=== PATIENT | female | born 1940 | race Caucasian/White ===

== ENCOUNTER 2019-09-15 14:10 | Outpatient (CLI) | payer MEDICARE, SELFPAY ==
--- NOTE | ~2019-09-15 | CT_ITS ---
EXAMINATION: CT abdomen pelvis wo con EXAM DATE: 09/15/2019 14:35 INDICATION: Right lower quadrant abdominal pain. TECHNIQUE: Spiral CT of the abdomen and pelvis was performed without contrast. Axial, coronal and s agittal images were reviewed. The dose-length product (DLP) for this examination was 1283.71 mGy-cm. The exposure was tailored according to patient size (auto mA exposure control), and iterative recon struction (ASIR) was used as additional dose reduction technique. There is no prior study for compar kassie. FINDINGS: The liver, spleen, adrenal glands and pancreas are unremarkable. Several small peripherall y calcified gallbladder in the dependent aspect of the gallbladder, its neck, with moderately distend ed but otherwise unremarkable gallbladder. Calcification lower pole right kidney suspected most like ly parenchymal, measuring 4 mm in size. There is no hydronephrosis. Multiple sizable left renal cysts distorting left renal contour, individual lesions measuring up to 7 cm. No evidence of wall thickeni ng within any of these on this noncontrast study. The uterus is unremarkable. The bladder is unrem arkable. There is no retroperitoneal or pelvic lymphadenopathy. There is mild scattered arterioscl erotic disease. The appendix is normal. The stomach and small bowel are unremarkable. There is extensive sigmoid col onic diverticulosis. There is no adjacent inflammatory change to suggest diverticulitis. There is c oarse benign-appearing mesenteric calcification without any soft tissue density associated. No free intraperitoneal gas. The heart is normal in size. There are no pericardial or pleural effusions. The lung bases are unremarkable. There are no osteoblastic or osteolytic lesions identified. There is moderate lumbar levoscoliosis. Advanced lumbar spondylosis. IMPRESSION: 1. No acute intra-abdominal findings. Normal appendix. 2. Rather extensive sigmoid diverticulosis. 3. Cholelithiasis. Reviewed, dictated and finalized at location A.
== END 2019-09-15 14:11 | disposition home or self-care (01) ==
LOC: ANHIMG 14:15
PROVIDERS: PCP Family Medicine; Visit Provider Family Medicine
DX: R10.31 Right lower quadrant pain (principal); K80.20 Calculus of gallbladder without cholecystitis without obstruction; K57.30 Diverticulosis of large intestine without perforation or abscess without bleeding
CPT/HCPCS: 74176

== ENCOUNTER 2020-04-19 14:10 | Inpatient (IN) | payer MEDICARE, SELFPAY ==
[2020-04-19] VITALS (7 sets, daily range): BP systolic 102–166; BP diastolic 51–136; PULSE 76–101; RESP 18–22; TEMP 36.3–36.4; O2SAT 85–99; BMI 45.3
--- NOTE | ~2020-04-19 | US_ITS ---
EXAMINATION: US renal BI EXAM DATE: 04/20/2020 10:14 INDICATION: Possible left renal mass noted on CT. TECHNIQUE: Multiple grayscale and Doppler images of the kidneys were obtained (by a technologist who performed the scan) and subsequently reviewed. There is no prior study for comparison. FINDINGS: Right kidney: There is normal contour and echogenicity. It measures 11.6 x 4.6 x 5.8 centimeters. A focal 1 cm hyperechoic region was measured in the lower pole, nonspecific region. There is no hydro nephrosis. Left kidney: There is normal contour and echogenicity. It measures 17.4 x 6.2 x 5.5 centimeters. The re are multiple anechoic regions. One of these may have a thick wall along portions. Largest measures 6 cm. There is no hydronephrosis. Bladder unremarkable. IMPRESSION: Indeterminate bilateral renal lesions; MR abdomen without and with contrast recommended. Reviewed, dictated and finalized at location B. IST FOOD
--- NOTE | ~2020-04-19 | CT_ITS ---
EXAMINATION: CTA chest PE protocol DATE: 04/19/2020 18:01 CAR REFINISHER INDICATION: Positive d-dimer TECHNIQUE: Computed tomographic angiography (CTA) of the chest was performed with 100 mL Omnipaque-35 0 intravenous contrast. The dose-length product was 879.11 mGy-cm. Maximum intensity projection 3D-re constructions of the aorta and other arteries were constructed by the technologist on a separate work station. Automated exposure control and iterative reconstruction technique were employed. COMPARISON: CT dated 11/29/2004. FINDINGS: Study is technically adequate without evidence for pulmonary embolism. Cardiomegaly. No sig nificant pleural or pericardial effusion. There is atherosclerosis of the aorta and coronary arteries without aneurysm or dissection. No gallstones. There is a possible left renal mass. Consider correla tion with ultrasound or CT abdomen with contrast on nonemergent basis. There is dependent atelectasis . No endobronchial lesions. No focal airspace consolidation to suggest pneumonia. No pneumothorax. 2 mm right upper lobe nodule, likely benign. IMPRESSION: 1. No evidence for pulmonary embolism. Left basilar atelectasis. 2: Possible left renal mass partially visualized. Consider correlation with ultrasound or CT abdomen with contrast on a nonemergent basis. Reviewed, dictated and finalized at location A. REFINISHER IMPRESSION: 1. No evidence for pulmonary embolism. Left basilar atelectasis. 2: Possible left renal mass partially visualized. Consider correlation with ul trasound or CT abdomen with contrast on a nonemergent basis.
--- NOTE | ~2020-04-19 | US_ITS ---
EXAMINATION: US venous doppler LE EXAM DATE: 04/19/2020 15:35 INDICATION: Bilateral leg swelling. TECHNIQUE: Multiple grayscale, color flow and Doppler images of the lower extremity deep venous syste ms bilaterally were obtained and reviewed. There is no prior study for comparison. FINDINGS: Right side: The right common femoral, femoral and profunda veins demonstrate normal color flow, respi ratory variation, augmentation and compressibility. Compressibility, color flow confirmed within the right popliteal, posterior tibial, peroneal, and greater saphenous veins. Left side: The left common femoral, femoral and profunda veins demonstrate normal color flow, respira tory variation, augmentation and compressibility. Compressibility, color flow confirmed within the l eft popliteal, posterior tibial, peroneal, and greater saphenous veins. IMPRESSION: 1. No lower extremity deep venous thrombosis bilaterally. Reviewed, dictated and finalized at location B. FEEDER
--- NOTE | ~2020-04-19 | XR_ITS ---
EXAMINATION: XR chest 1V portable INDICATION: Shortness of breath TECHNIQUE: Portable AP chest at 1500 hours COMPARISON: 11/29/2004 FINDINGS: The lungs are free of acute opacities. There is no pleural effusion or pneumothorax. The ca rdiomediastinal silhouette is normal. IMPRESSION: 1. No acute cardiopulmonary abnormality. Reviewed, dictated and finalized at location A. LING MACHINE OPERATOR
--- NOTE | 2020-04-19 14:11 | ECG_ITS ---
Measurements Intervals [place] Rate: 103 P: 63 CO: 155 QRS: -36 QRSD: 106 T: 120 QT: 323 QTc: 425 Interpretive Statements SINUS TACHYCARDIA FREQUENT VENTRICULAR PREMATURE COMPLEXES LEFT AXIS DEVIATION BORDERLINE R WAVE PROGRESSION, ANTERIOR LEADS ST-T WAVE ABNORMALITY IN HIGH LATERAL LEADS- CONSIDER ISCHEMIA BASELINE ARTIFACT- I, II, III, AVR ABNORMAL ECG Electronically Signed On 04-19-2020 14:48:57 FUNNEL SETTER by Geoff Soriano D.O.
--- NOTE | 2020-04-19 14:54 | ED.GENADULT ---
HPI - General Adult General Chief complaint: Shortness of Breath/Dyspnea Stated complaint: SOB-retaining water Time Seen by Provider: 04/19/20 14:26 Source: patient History of Present Illness HPI narrative: Patient is a 79 y/o female complaining of moderate SOB for 2-3 weeks. She states that exertion makes her SOB worse. She states that her BP meds was changed recently. She has some leg swelling. She denies any chest pain or cough. Related Data Allergies Allergy/AdvReac Type Severity Reaction Status Date / Time No Known Drug Allergies Allergy Unknown NONE Verified 11/01/16 10:22 Review of Systems Constitutional: Constitutional: Denies chills, Denies fever(s), Denies headache(s) and Denies weakness Eyes: Eyes: Denies blurry vision ENT: Denies headache(s) and Denies neck pain Cardiovascular: Cardiovascular: Denies chest pain, Reports leg edema and Reports dyspnea Respiratory: Respiratory: Denies cough and Reports dyspnea Gastrointestinal: Gastrointestinal: Denies abdominal pain, Denies diarrhea, Denies nausea and Denies vomiting Genitourinary: Genitourinary: Denies hematuria and Denies dysuria Musculoskeletal: Musculoskeletal: Denies back pain and Denies neck pain Neurologic: Denies headache(s) and Denies weakness Exam Const: General: no acute distress and well developed Orientation/consciousness: oriented to person, oriented to place, oriented to time and patient oriented x3 HENMT: Head: normocephalic Ears: external ears normal General nose exam: Normal external nose present Eyes: General: appearance normal, both eyes and all related structures Conjunctivae: conjunctivae normal Neck: Neck: normal visual inspection and full ROM Chest: Chest palpation & inspection: normal inspection of the chest and no tenderness Resp: Effort & Inspection: normal respiratory effort Auscultation: clear to auscultation bilaterally Cardio: Rate: regular rate Rhythm: regular rhythm GI: GI Palp: No abdominal tenderness and Yes Soft to palpation Skin: General skin exam: normal color and turgor normal Neuro: General: oriented to person, oriented to place, oriented to time and patient oriented x3 Cognition (Neuro): normal cognition Extrem: General: normal to inspection, full ROM and edema bilateral Psych: Appearance: grossly normal Mental Status: mental status grossly normal Affect: normal affect Course Consultations Consultation #1: Discussed with BARBARA Mullins, who agrees to admit. Date: 04/19/20 Time: 19:00 Vital Signs Vital signs: Vital Signs Temperature 36.4 C L 04/19/20 14:17 Pulse Rate 101 H 04/19/20 14:17 Respiratory Rate 18 04/19/20 14:17 Blood Pressure 111/64 04/19/20 14:17 Pulse Oximetry 85 L 04/19/20 14:17 Temperature 36.4 C L 04/19/20 14:28 Pulse Rate 76 04/19/20 19:07 Respiratory Rate 22 H 04/19/20 19:07 Blood Pressure 102/51 L 04/19/20 19:07 Pulse Oximetry 97 04/19/20 19:07 Medical Decision Making Vital Signs Vital Signs: Vital Signs Temperature 36.4 C L 04/19/20 14:17 Pulse Rate 101 H 04/19/20 14:17 Respiratory Rate 18 04/19/20 14:17 Blood Pressure 111/64 04/19/20 14:17 Pulse Oximetry 85 L 04/19/20 14:17 Temperature 36.4 C L 04/19/20 14:28 Pulse Rate 76 04/19/20 19:07 Respiratory Rate 22 H 04/19/20 19:07 Blood Pressure 102/51 L 04/19/20 19:07 Pulse Oximetry 97 04/19/20 19:07 Lab Data Result diagrams: 04/19/20 14:45 04/19/20 14:45 Labs: Lab Results 04/19/20 04/19/20 04/19/20 Range/Units 14:45 14:45 14:45 WBC 8.3 (4.5-10.0) K/mm3 RBC 3.70 L (4.2-5.4) M/mm3 Hgb 11.5 L (12.0-15.0) g/dL Hct 36.3 L (37.0-47.0) % MCV 98.1 (80-100) fl MCH 31.1 (26-34) pg MCHC 31.7 L (32-36) g/dl RDW 14.2 (11.5-14.5) % Plt Count 264 (150-375) k/mm3 MPV 10.1 (7.4-10.4) fl Immature Gran % (Auto) 0.5 (0-0.5) % Neut % (Auto) 73.1 (45.5-73.1) % Lymph % (Auto)
[2020-04-19 14:55] LABS: Basophils Percent Auto 0.2 % (0.2-1.2); Eosinophils Absolute Auto 0.1 K/mm3 (0-0.3); Eosinophils Percent Auto 1.7 % (0-4.4); Hematocrit 36.3 % (37.0-47.0); Hemoglobin 11.5 g/dL (12.0-15.0); Immature Granulocyte Absolute 0.04 K/mm3 (0.00-0.031); Immature Granulocyte Percent A 0.5 % (0-0.5); Lymphocytes Absolute Auto 1.49 K/mm3 (0.9-3.2); Lymphocytes Percent Auto 17.9 % (18.3-44.2); Mean Corpuscular HGB Conc 31.7 g/dl (32-36); Mean Corpuscular Hemoglobin 31.1 pg (26-34); Mean Corpuscular Volume 98.1 fl (80-100); Mean Platelet Volume 10.1 fl (7.4-10.4); Monocytes Absolute Auto 0.6 K/mm3 (0.1-0.6); Monocytes Percent Auto 6.6 % (2.6-8.5); Neutrophils Absolute Auto 6.1 K/mm3 (1.3-6.7); Neutrophils Percent Auto 73.1 % (45.5-73.1); Platelet Count Result 264 k/mm3 (150-375); Red Cell Distribution Width 14.2 % (11.5-14.5); White Blood Count 8.3 K/mm3 (4.5-10.0)
[2020-04-19 15:06] LABS: INR 0.9; Prothrombin Time 12.2 Seconds (11.1-14.7)
[2020-04-19 15:07] LABS: Partial Thromboplastin Time 22.9 SECONDS (22.3-36.8)
[2020-04-19 15:12] LABS: Potassium 3.8 mmol/L (3.4-5.0)
[2020-04-19 15:21] LABS: NT Pro B Type Natriuretic Pept 806 PG/ML (5-100)
[2020-04-19 15:24] LABS: Troponin I 0.013 ng/mL (0.000-0.034)
[2020-04-19 15:28] LABS: Alanine Aminotransferase 13 U/L (4-35); Albumin Level 3.6 g/dL (3.5-5.1); Alkaline Phosphatase 54 U/L (38-126); Anion Gap 4 mmol/L (8-16); Aspartate Amino Transferase 25 U/L (14-36); Bilirubin,Total 0.6 mg/dL (0.2-1.3); Blood Urea Nitrogen 21 mg/dL (7-17); Calcium 8.8 mg/dL (8.4-10.2); Carbon Dioxide 34 mmol/L (22-30); Chloride 103 mmol/L (98-107); Estimated CRCL calculation 64 ml/min; Estimated Glomerular Filt Rate > 60; Glucose 102 mg/dL (65-105); Sodium 141 mmol/L (137-145)
--- NOTE | 2020-04-19 15:57 | PC.NURSE ---
Pulse ox dropped to the 70's while up to the bathroom. SPO2 returned to upper 90's when returning to bed and having 2l NC placed.
[2020-04-19 16:44] LABS: D Dimer 3.41 ug/mL (<0.48)
[2020-04-19 18:09] LABS: Troponin I 0.021 ng/mL (0.000-0.034)
--- NOTE | 2020-04-19 20:20 | ADMGEN ---
This patient, Macy Ram, was admitted to Medical Room 343-01. Patient/family oriented to hospital policies and general routines including ID bracelet, bed and alarms, visiting hours, pain management, procedures, bathroom and other care routines, personal items, smoking policy, room service/diet, and visiting hours. Information on how to activate the Rapid Response Team has been discussed. Patient/Family are encouraged to report perceived risks to care and to ask questions if they do not understand what they are told or what they should do.
--- NOTE | 2020-04-19 21:00 | PM.IMHP ---
H&P: HPI History of Present Illness Date/Time: 04/19/20 21:00 Chief Complaint: Shortness of breath. Narrative: This is a 79-year-old female with hypertension, dyslipidemia, and type 2 diabetes mellitus who presented to the emergency department earlier today from home for evaluation of shortness of breath. She has been feeling increasingly short of breath over the past 3 weeks associated with lower extremity edema and to some extent swelling of the hands and fingers as well. It is to the point were she gets short of breath even moving about the house at a regular pace. She does admit that she is quite sedentary, limited in activities due to chronic low back pain however her breathing is much worse now. Apparently there have been changes made to her antihypertensives recently and she was started on amlodipine at the beginning of March however she did not feel well taking that medicine and that was discontinued and she was started on losartan. She does not think that her blood pressures have been running high but it does not sound as though she checks them at home. She denies fever, chills, and sweats. No sinus congestion, rhinorrhea, otalgia, or odynophagia. No chest pain, pleuritic pain, cough, or wheeze. She denies orthopnea and PND although her reports that she snores quite a bit. She has no history of cardiac disease, congestive heart failure, sleep apnea, venous thromboembolism, or thyroid disease to her knowledge. Review of Systems Review of Systems: Narrative: 12 systems were reviewed with pertinent positives and negatives as per HPI. No exposure to those positive for COVID-19. She has not had cold or flu symptoms. Weight has remained stable not some mild weight gain. No history of malignancy. She denies hematuria and dysuria. Appetite has been stable. No nausea or vomiting. She has not noticed blood or mucus in the stool. She is prediabetic and is on metformin. Does not check glucose at home. No blurry vision, polydipsia, or polyuria. She occasionally has mild tingling in her feet but which just began when she started to have edema of the legs. No skin color temperature changes of the feet. No numbness. Except as documented all other systems were reviewed and are negative. [facility] Past Medical History Medical History (Updated 04/19/20 @ 21:18 by Susanna Oh PA-C) Chronic back pain Dyslipidemia Former smoker History of colon polyps Hypertension Morbid obesity Surgical History Surgical History (Updated 04/19/20 @ 21:10 by Susanna Oh PA-C) History of colonoscopy Revealing diverticulosis, internal hemorrhoids, and benign colon polyp. History of hemorrhoidectomy History of tubal ligation Family History Family History Mother Renal failure Heart disease Father Cerebrovascular accident Social History Social History (Updated 04/19/20 @ 21:11 by Susanna Oh PA-C) Social History: The patient is lives with her in [place]. They have 2 grown children. She smoked 1 pack of cigarettes per day off and on for a total of 35 years and quit in 2006. No alcohol or illicit substance abuse. She designates her children, Ade and Taiwo, as her surrogate decision makers and she wishes to be a full code. Smoking packs per day: 1 Smoking cigarettes per day: 20.0 Years smoked: 35 Smoking pack-years: 35.00 Smoking status: Former smoker Alcohol intake: current Drinks per week: 1 Substance use: never Gender identity (if verbalized by the patient): Female Spiritual care concerns: No Meds Home Medications and Allergies Home Medications Medication Instructions Recorded Confirmed Type Aleve 250 mg PO DAILY PRN 04/19/20 04/19/20 History Baby Aspirin 81 mg PO DAILY 04/19/20 04/19/20 History atorvastatin 20 mg PO DAILY 04/19/20 04/19/20 History losartan 50 mg PO DAILY 04/19/20 04/19/20 His
[2020-04-19] MEDS: FUROSEMIDE INJ 40 MG/4 ML VIAL 20 MG IV PUSH (21:25)
[2020-04-19 21:32] LABS: Glucose Point of Care 103 (65-105)
[2020-04-19 21:42] LABS: Alveolar/Arterial O2 Gradient 42.7 mmHg; Base Excess ABG 7.9 mEq/l (+/-2.0); Carboxyhemoglobin 0.3 % THb (0-2.0); Fractional Inspired Oxygen 28 %; HCO3 ABG 35.8 mEq/l (22.0-26.0); Methemoglobin ABG 0.5 %THb (0-1.5); Oxygen Content ABG 15.6 %vol (16.0-22.0); Oxyhemoglobin 92.6 % THb (90.0-100.0); PO2 ABG 76.2 mmHg (80.0-100.0); PO2 FiO2 Ratio Arterial Blood 2.72 %; Reduced Hemoglobin 6.6 %THb (0-5.0); Total Hemoglobin 11.9 g/dL (12.0-18.0); pH ABG 7.337 (7.350-7.450)
[2020-04-19 21:43] LABS: Device NASAL CANNULA; Modified Allen's Test Pass; PCO2 ABG 68.4 mmHg (35.0-45.0); Site Drawn LEFT RADIAL
[2020-04-19 21:43] LABS: Troponin I 0.024 ng/mL (0.000-0.034)
[2020-04-19 21:55] LABS: Iron 59 ug/dL (37-170)
[2020-04-19 22:02] LABS: Alanine Aminotransferase 14 U/L (4-35); Albumin Level 3.4 g/dL (3.5-5.1); Alkaline Phosphatase 51 U/L (38-126); Aspartate Amino Transferase 25 U/L (14-36); Bilirubin,Total 0.5 mg/dL (0.2-1.3); Magnesium 1.5 mg/dL (1.6-2.3)
[2020-04-19 23:07] LABS: Percent Iron Saturation 17 % (20-50)
[2020-04-19 23:39] LABS: Folic Acid 18.1 ng/mL (2.76->20)
[2020-04-20] VITALS (13 sets, daily range): BP systolic 102–120; BP diastolic 36–83; PULSE 66–101; RESP 16–18; TEMP 35.9–36.8; O2SAT 83–98
--- NOTE | 2020-04-20 | ECHO_ITS ---
Patient Info Name: Macy Ram Age: 79 years : 1940 Gender: Female Ht: 60 in Wt: 231 lbs BSA: 2.17 m2 HR: 68 bpm BP: 156 / 74 mmHg Heart Rhythm: Sinus Rhythm Technical Quality: Good Exam Date: 04/20/2020 11:19 AM Exam Location: [facility] Patient Status: Inpatient Admit Date: 04/20/2020 Staff Ordering Physician: Susanna Oh PA-C Client Relations Specialist: Isidoro Luna RDCS, RT Attending Provider: Jud Bloom PA-C Referring Physician: Althea CHRISTIE; Exam Type: CA echo doppler color flow Study Info Indications R60.0 - Localized edema R06.02 - Shortness of breath Complete two-dimensional, color flow and Doppler transthoracic echocardiogram is performed. Strain analysis performed. Summary 1. Complete two-dimensional, color flow and Doppler transthoracic echocardiogram is performed. 2. Left ventricular chamber dimension is normal. 3. Left ventricular systolic function is normal, estimated at 60-65%. 4. There is moderately increased left ventricular wall thickness. 5. The left ventricular diastolic function is grade I diastolic dysfunction. 6. Global longitudinal strain is abnormal at -13 %. 7. Left atrial chamber dimension is mildly enlarged. 8. There is mild mitral valve regurgitation. 9. There is mild pulmonic regurgitation. Left Ventricle Left ventricular chamber dimension is normal. Left ventricular systolic function is normal, estimated at 60-65%. There is moderately increased left ventricular wall thickness. The left ventricular diastolic function is grade I diastolic dysfunction. Global longitudinal strain is abnormal at -13 %. Right Ventricle Right ventricular chamber dimension is normal. Right ventricular systolic function is normal. Left Atria Left atrial chamber dimension is mildly enlarged. Right Atria Right atrial chamber dimension is normal. Atrial Septum Intact interatrial septum visualized by color flow imaging. Aortic Valve The aortic valve is trileaflet. There is mild aortic valve sclerosis. There is no aortic valve stenosis. There is trace aortic valve regurgitation. Pulmonic Valve The pulmonic valve is normal. There is no pulmonic valve stenosis. There is mild pulmonic regurgitation. Mitral Valve The mitral valve has normal leaflets. There is no mitral valve stenosis. There is mild mitral valve regurgitation. Tricuspid Valve The tricuspid valve leaflets are normal. There is no significant tricuspid valve stenosis. There is trace tricuspid valve regurgitation. Pericardium/Pleural The pericardium appears normal. There is no pericardial effusion. Inferior Vena Cava Normal inferior vena cava with >50% collapse upon inspiration consistent with normal right atrial pressure, 5 mmHg. Aorta The aortic root size at the sinus of Valsalva is normal. The prox ascending aorta size is normal. Left Ventricular Outflow Tract Name Value Normal LVOT 2D LVOT Diameter 2.1 cm LVOT Doppler LVOT Peak Gradient 4 mmHg LVOT Mean Gradient 2 mmHg LVOT VTI
[2020-04-20 00:06] LABS: Hemoglobin A1C 6.2 % (<5.7)
[2020-04-20 02:24] LABS: Alveolar/Arterial O2 Gradient 41.8 mmHg; Base Excess ABG 11.4 mEq/l (+/-2.0); Carboxyhemoglobin 0.3 % THb (0-2.0); Fractional Inspired Oxygen 28 %; HCO3 ABG 39.4 mEq/l (22.0-26.0); Methemoglobin ABG 0.3 %THb (0-1.5); Oxygen Content ABG 15.3 %vol (16.0-22.0); Oxygen Saturation ABG 93.7 % (95.0-100.0); Oxyhemoglobin 92.6 % THb (90.0-100.0); PO2 ABG 73.7 mmHg (80.0-100.0); PO2 FiO2 Ratio Arterial Blood 2.63 %; Reduced Hemoglobin 6.8 %THb (0-5.0); Total Hemoglobin 11.7 g/dL (12.0-18.0)
[2020-04-20 02:26] LABS: Device NASAL CANNULA; Modified Allen's Test Pass; PCO2 ABG 71.3 mmHg (35.0-45.0); Site Drawn LEFT RADIAL
[2020-04-20 06:09] LABS: Hematocrit 33.2 % (37.0-47.0); Hemoglobin 10.3 g/dL (12.0-15.0); Mean Corpuscular Hemoglobin 30.1 pg (26-34); Mean Corpuscular Volume 97.1 fl (80-100); Mean Platelet Volume 10.2 fl (7.4-10.4); Platelet Count Result 233 k/mm3 (150-375); Red Blood Count 3.42 M/mm3 (4.2-5.4); Red Cell Distribution Width 14.4 % (11.5-14.5); White Blood Count 6.4 K/mm3 (4.5-10.0)
[2020-04-20 06:23] LABS: Blood Urea Nitrogen 17 mg/dL (7-17); Calcium 8.4 mg/dL (8.4-10.2); Carbon Dioxide > 40 mmol/L (22-30); Chloride 99 mmol/L (98-107); Estimated CRCL calculation 56 ml/min; Estimated Glomerular Filt Rate > 60; Glucose 91 mg/dL (65-105); Magnesium 1.5 mg/dL (1.6-2.3); Potassium 3.3 mmol/L (3.4-5.0); Sodium 142 mmol/L (137-145)
--- NOTE | 2020-04-20 06:43 | PCRCNOTE ---
APNEA LINK WAS NOT INITIATED ON 04/19/2020 DUE TO THE FACT THAT RT WAS NOT AWARE OF THE TEST UNTIL AFTER THE MINIMUM REQUIRED TEST TIME FRAME. DR MIX IS AWARE AND REQUESTS THAT THE TEST BE COMPLETED TONIGHT, 04/20/2020.
[2020-04-20 08:21] LABS: Glucose Point of Care 88 (65-105)
[2020-04-20] MEDS: ASPIRIN 81 MG CHEWABLE TABLET PO (08:58)
[2020-04-20] MEDS: LOSARTAN POTASSIUM 50 MG TABLET PO (08:58)
[2020-04-20] MEDS: FUROSEMIDE INJ 40 MG/4 ML VIAL 20 MG IV PUSH ×2 (08:58→17:17)
[2020-04-20] MEDS: ATORVASTATIN 20 MG TABLET PO (08:59)
[2020-04-20] MEDS: POTASSIUM CHLORIDE 20 MEQ TABLET 40 MEQ PO (08:59)
[2020-04-20] MEDS: MAGNESIUM SULF 2 GM/WATER 50ML 2 GM/50 ML BAG IVPB (08:59)
[2020-04-20 12:25] LABS: Glucose Point of Care 98 (65-105)
[2020-04-20 13:34] LABS: Alveolar/Arterial O2 Gradient 54.9 mmHg; Base Excess ABG 5.9 mEq/l (+/-2.0); Carboxyhemoglobin 0.3 % THb (0-2.0); Fractional Inspired Oxygen 28 %; HCO3 ABG 32.9 mEq/l (22.0-26.0); Methemoglobin ABG 0.3 %THb (0-1.5); PCO2 ABG 59.9 mmHg (35.0-45.0); PO2 ABG 74.1 mmHg (80.0-100.0); PO2 FiO2 Ratio Arterial Blood 2.65 %; Reduced Hemoglobin 6.4 %THb (0-5.0); Total Hemoglobin 12.2 g/dL (12.0-18.0); pH ABG 7.358 (7.350-7.450)
[2020-04-20 14:41] LABS: Device NASAL CANNULA; Site Drawn RIGHT BRACHIAL
--- NOTE | 2020-04-20 14:46 | PM.IMPN ---
Progress Note: A&P Assessment and Plan (1) Hypoxia: Code(s): R09.02 - Hypoxemia Status: Acute Assessment and Plan: ABG shows CO2 retention. This may be related to possible untreated DEIDRA, obesity hypoventilation syndrome exacerbated by the developing edema. She is neither lethargic nor confused despite the elevated CO2. Suspect her baseline may be elevated. Improved on repeat ABG after some diuresis. Discussed with RN to wean supplemental O2. (2) Shortness of breath: Code(s): R06.02 - Shortness of breath Status: Acute Assessment and Plan: See above. Echocardiogram reviewed. Apnea link tonight although patient tells me she will not wear a CPAP. Discussed the cardiopulmonary risks of untreated DEIDRA if AL is positive. (3) Edema: Code(s): R60.9 - Edema, unspecified Status: Acute Assessment and Plan: Improving with IV diuresis. Venous doppler shows no DVT markie legs. Norvasc may have contributed, medication changes recently. Elevate legs, patient admits she does not do this at home. (4) Abnormal finding on imaging: Code(s): R93.89 - Abnormal findings on diagnostic imaging of other specified body structures Status: Acute Assessment and Plan: MARKIE renal masses noted on CT and renal ultrasound. Discussed recommendation for further evaluation with MRI. Patient adamantly declines MRI due to claustrophobia. (5) Hypertension: Code(s): I10 - Essential (primary) hypertension Status: Chronic Assessment and Plan: Stable on lower end, asymptomatic. Continue home losartan, continue diuresis. (6) Dyslipidemia: Code(s): E78.5 - Hyperlipidemia, unspecified Status: Acute Assessment and Plan: Continue home statin therapy. (7) Morbid obesity: Code(s): E66.01 - Morbid (severe) obesity due to excess calories Status: Acute Assessment and Plan: Lifestyle modifications encouraged. (8) Chronic back pain: Code(s): M54.9 - Dorsalgia, unspecified; G89.29 - Other chronic pain Status: Acute Assessment and Plan: No acute issues today. (9) Normocytic anemia: Code(s): D64.9 - Anemia, unspecified Status: Acute Assessment and Plan: H&H low but stable, no evidence of acute bleeding. Monitor CBC. B12 on lower end, start supplementation. Folate and iron studies oK. Additional Plan Prediabetes - Metformin held due to IV contrast on arrival. Monitor accu-cheks and cover with SSI. Subjective Date/time seen: 04/20/20 1300 Interval history: Ms. Ram is a 79yo F admitted with shortness of breath and hypoxia. She reports feeling a bit better today. She notes LE swelling sometimes after having her legs down. Noted her blood pressure medicines have been changed recently and that's when she started feeling bad. She denies chest pain, SOB improved. No nausea or vomiting. Tolerating lunch fine during my encounter. Review of Systems Review of Systems: All systems reviewed & are unremarkable except as noted in HPI and below Exam Narrative: Exam Narrative: General: Female resting comfortably in bedside chair in no acute distress. HEENT: Normocephalic, EOMI, oral mucosa moist. Neck: Supple. Exam difficult due to neck circumference. Respiratory: Lung sounds are a bit diminished due to body habitus but are otherwise clear to auscultation. Respirations even and nonlabored, speaking in full sentences. Still on oxygen but with good saturations I have asked nursing to wean
--- NOTE | 2020-04-20 15:48 | PC.NURSE ---
Observed patient and reviewed documentation completed by Jaylyn Stone today [id number]
[2020-04-20 16:50] LABS: Glucose Point of Care 160 (65-105)
[2020-04-20 20:43] LABS: Glucose Point of Care 88 (65-105)
[2020-04-21] VITALS (10 sets, daily range): BP systolic 110–150; BP diastolic 41–70; PULSE 63–98; RESP 17–20; TEMP 36.3–36.9; O2SAT 90–99
[2020-04-21 05:44] LABS: Basophils Percent Auto 0.1 % (0.2-1.2); Eosinophils Absolute Auto 0.2 K/mm3 (0-0.3); Eosinophils Percent Auto 2.7 % (0-4.4); Hematocrit 35.4 % (37.0-47.0); Hemoglobin 10.8 g/dL (12.0-15.0); Immature Granulocyte Absolute 0.03 K/mm3 (0.00-0.031); Immature Granulocyte Percent A 0.4 % (0-0.5); Lymphocytes Absolute Auto 1.36 K/mm3 (0.9-3.2); Lymphocytes Percent Auto 20.2 % (18.3-44.2); Mean Corpuscular HGB Conc 30.5 g/dl (32-36); Mean Corpuscular Hemoglobin 30.4 pg (26-34); Mean Corpuscular Volume 99.7 fl (80-100); Mean Platelet Volume 10.3 fl (7.4-10.4); Monocytes Absolute Auto 0.5 K/mm3 (0.1-0.6); Neutrophils Absolute Auto 4.6 K/mm3 (1.3-6.7); Neutrophils Percent Auto 68.6 % (45.5-73.1); Platelet Count Result 236 k/mm3 (150-375); Red Blood Count 3.55 M/mm3 (4.2-5.4); Red Cell Distribution Width 14.3 % (11.5-14.5); White Blood Count 6.7 K/mm3 (4.5-10.0)
[2020-04-21 05:57] LABS: Alanine Aminotransferase 12 U/L (4-35); Albumin Level 3.2 g/dL (3.5-5.1); Alkaline Phosphatase 46 U/L (38-126); Aspartate Amino Transferase 21 U/L (14-36); Bilirubin,Total 0.5 mg/dL (0.2-1.3); Blood Urea Nitrogen 21 mg/dL (7-17); Calcium 8.4 mg/dL (8.4-10.2); Carbon Dioxide > 40 mmol/L (22-30); Chloride 96 mmol/L (98-107); Estimated CRCL calculation 56 ml/min; Estimated Glomerular Filt Rate > 60; Glucose 105 mg/dL (65-105); Magnesium 1.6 mg/dL (1.6-2.3); Potassium 3.6 mmol/L (3.4-5.0); Sodium 141 mmol/L (137-145)
[2020-04-21] MEDS: ASPIRIN 81 MG CHEWABLE TABLET PO (08:14)
[2020-04-21] MEDS: ATORVASTATIN 20 MG TABLET PO (08:15)
[2020-04-21] MEDS: CYANOCOBALAMIN 1,000 MCG TABLET 1000 MCG PO (08:15)
[2020-04-21] MEDS: FUROSEMIDE INJ 40 MG/4 ML VIAL 20 MG IV PUSH ×2 (08:15→16:49)
[2020-04-21] MEDS: LOSARTAN POTASSIUM 50 MG TABLET PO (08:15)
[2020-04-21 09:39] LABS: Glucose Point of Care 111 (65-105)
[2020-04-21 12:06] LABS: Glucose Point of Care 103 (65-105)
[2020-04-21] MEDS: MAGNESIUM OXIDE 400 MG TABLET PO (12:14)
--- NOTE | 2020-04-21 15:55 | PM.IMPN ---
Progress Note: A&P Assessment and Plan (1) Hypoxia: Code(s): R09.02 - Hypoxemia Status: Acute Assessment and Plan: ABG shows CO2 retention. This may be related to possible obesity hypoventilation syndrome exacerbated by the developing edema. She is neither lethargic nor confused despite the elevated CO2. Suspect her baseline may be elevated. Improved on repeat ABG yesterday after some diuresis. Discussed with RN to wean supplemental O2. Add incentive spirometry and encourage deep breaths. (2) Shortness of breath: Code(s): R06.02 - Shortness of breath Status: Acute Assessment and Plan: See above. Echocardiogram reviewed. Apnea link screening is negative. She may benefit from outpatient PFTs. (3) Edema: Code(s): R60.9 - Edema, unspecified Status: Acute Assessment and Plan: Improving with IV diuresis. Venous doppler shows no DVT mrakie legs. Norvasc may have contributed, medication changes recently. Elevate legs, patient admits she does not do this at home. (4) Abnormal finding on imaging: Code(s): R93.89 - Abnormal findings on diagnostic imaging of other specified body structures Status: Acute Assessment and Plan: MARKIE renal masses noted on CT and renal ultrasound. Discussed recommendation for further evaluation with MRI. Patient adamantly declines MRI due to claustrophobia. (5) Hypertension: Code(s): I10 - Essential (primary) hypertension Status: Chronic Assessment and Plan: Stable on lower end, asymptomatic. Continue home losartan, continue diuresis. (6) Dyslipidemia: Code(s): E78.5 - Hyperlipidemia, unspecified Status: Acute Assessment and Plan: Continue home statin therapy. (7) Morbid obesity: Code(s): E66.01 - Morbid (severe) obesity due to excess calories Status: Acute Assessment and Plan: Lifestyle modifications encouraged. (8) Chronic back pain: Code(s): M54.9 - Dorsalgia, unspecified; G89.29 - Other chronic pain Status: Acute Assessment and Plan: No acute issues today. (9) Normocytic anemia: Code(s): D64.9 - Anemia, unspecified Status: Acute Assessment and Plan: H&H low but stable, no evidence of acute bleeding. Monitor CBC. B12 on lower end, start supplementation. Folate and iron studies ok. Additional Plan Prediabetes - Metformin held due to IV contrast on arrival. Monitor accu-cheks and cover with SSI. Subjective Date/time seen: 04/21/20 15:30 Interval history: Ms. Ram is a 79yo F admitted with shortness of breath and hypoxia. She is feeling better today, was off oxygen most of the day but after some activity was found to be 88% on room air and now back onto 1L. She reports she has always been a shallow breather . She denies chest pain. Slept well last night. Leg swelling is a little improved. Tolerating oral intake without nausea or vomiting. Review of Systems Review of Systems: All systems reviewed & are unremarkable except as noted in HPI and below Exam Narrative: Exam Narrative: General: Female resting comfortably in bedside chair in no acute distress. HEENT: Normocephalic, EOMI, oral mucosa moist. Neck: Supple. Exam difficult due to neck circumference. Respiratory: Lung sounds are a bit diminished due to body habitus but are otherwise clear to auscultation. Respirations even and nonlabored, speaking in full sentences. Tolerating 1 L Cardiovascular: Regular rate and rhythm with S1-S2.
[2020-04-21 16:52] LABS: Glucose Point of Care 107 (65-105)
[2020-04-21 21:50] LABS: Glucose Point of Care 108 (65-105)
[2020-04-22] VITALS (11 sets, daily range): BP systolic 112–125; BP diastolic 51–71; PULSE 65–98; RESP 17–18; TEMP 36.1–37.1; O2SAT 90–97
[2020-04-22 05:56] LABS: Blood Urea Nitrogen 21 mg/dL (7-17); Carbon Dioxide > 40 mmol/L (22-30); Chloride 94 mmol/L (98-107); Estimated CRCL calculation 56 ml/min; Estimated Glomerular Filt Rate > 60; Glucose 118 mg/dL (65-105); Magnesium 1.7 mg/dL (1.6-2.3); Potassium 3.8 mmol/L (3.4-5.0); Sodium 140 mmol/L (137-145)
[2020-04-22] MEDS: FUROSEMIDE INJ 40 MG/4 ML VIAL 20 MG IV PUSH ×2 (08:02→16:46)
[2020-04-22] MEDS: ATORVASTATIN 20 MG TABLET PO (08:03)
[2020-04-22] MEDS: LOSARTAN POTASSIUM 50 MG TABLET PO (08:03)
[2020-04-22] MEDS: CYANOCOBALAMIN 1,000 MCG TABLET 1000 MCG PO (08:03)
[2020-04-22] MEDS: ASPIRIN 81 MG CHEWABLE TABLET PO (08:03)
[2020-04-22] MEDS: MAGNESIUM OXIDE 400 MG TABLET PO (08:03)
[2020-04-22 09:31] LABS: Glucose Point of Care 111 (65-105)
--- NOTE | 2020-04-22 11:33 | PM.CNPUL ---
Assessment and Plan Assessment and plan (1) Chronic respiratory failure with hypoxia and hypercapnia: Code(s): J96.11 - Chronic respiratory failure with hypoxia; J96.12 - Chronic respiratory failure with hypercapnia Status: Acute Assessment and Plan: Patient presented with increasing peripheral edema, shortness of breath, compensated respiratory acidosis on her ABG which was 7.38/68/76. Patient required 2 L nasal cannula oxygen when she 1st presented. Patient has been diuresed and her most recent blood gas is now 7.36/60/74 on 2 L on 04/20/2020. Today she is satting 97% on room air. There is no evidence of underlying COPD, asthma, sleep apnea, hypothyroidism, or infection. I suspect patient may have alveolar hypoventilation syndrome from her morbid obesity. This may be complicated by fluid overload at this time. I agree with diuresis as aggressively as tolerated by her cardiac and renal systems. Patient had an apnea link performed initially on 1.5 L at the start of the study and at the end she was increased to 2 L. Her AHI is 1.6. Her average saturation was 96%. Her lowest saturation was 83%. Her saturations less than or equal to 88% was 0 minutes and her saturations less than or equal to 90 were 2 minutes which was 0% of monitored time. Patient is suitable for discharge from my perspective. She should have an home O2 assessment prior to discharge. As an outpatient, once patient is euvolemic will perform PFTs and repeat resting arterial blood gas to assess for hypercarbia. If she has no obstructive airways disease and she remains hypercarbic patient will require a sleep study to exclude obstructive sleep apnea prior to qualifying for noninvasive ventilation at home for alveolar hypoventilation syndrome. I gave her our business card to call for an appointment and notified our staff as well. Discussed with Jud Bloom. Call with any questions. History of Present Illness History of Present Illness Consult date: 04/22/20 Requesting physician: Jud Bloom PA-C Reason for consult: hypoxemia and other (hypercarbia) Chief complaint: hypoxia Narrative: This is a new pulmonary consult for hypoxia and hypercarbia. This is a 79-year-old female with a history of hypertension, hyperlipidemia, prediabetes who presented to the hospital on 04/19/2020 with shortness of breath. Patient had been started on a water pill for worsening edema approximately 3 weeks prior to admission. She is on no benefit after 9 days and her primary doctor switched her to a new pill. Patient took the new pill for 10 days but noticed no change in her peripheral edema and shortness of breath. Patient describes shortness of breath as both with rest and with ambulation. Patient also complained of fatigue. Patient has no known history of asthma, COPD, obstructive sleep apnea or interstitial lung disease. Patient smoked tobacco from age [age] at 1 pack per day, age [age] at 1 pack per day for a total of 38 pack years. Patient denies vaping, marijuana use, illicit drug use, sandblasting, welding, asbestos work or or working in the steel mill. Patient does state that she snores but has no witnessed apneas and no tight no daytime hypersomnia. Patient states that she can walk 50 yd and then stops for breathing issues and back pain. Patient has never had any respiratory exacerbations requiring hospitalization or medications such as steroids or antibiotics. Patient denied any fever, chills, phlegm production, chest pain, hemoptysis. Patient presented to the emergency department on 04/19/2020 is what was found to have a BNP of 806 negative troponins x3, D-dimer of 3.41, and an ABG of 7.34/68/76 on 2 L nasal cannula. TSH 2.06. Her admission serum bicarb was 34. Patient had a CT angiogram of the chest which demonstrated no pulmonary embolism, no pulmonary infiltrates, no bullous emphysema, no interstitial lung disease. Patient had lower extremity Dopplers
[2020-04-22 13:18] LABS: Glucose Point of Care 136 (65-105)
--- NOTE | 2020-04-22 16:42 | PM.DS ---
DS: Admitting Diagnosis Admitting Diagnosis Admitting Diagnosis: Hypoxia DS: Discharge Diagnosis Discharge Diagnosis (1) Hypoxia: Code(s): R09.02 - Hypoxemia Status: Acute Assessment and Plan: Date of Admission 04/19/20 Date of Discharge/DOS 04/22/20 Ms. Ram is a 79yo F with history hypertension, dyslipidemia, chronic anemia, chronic back pain who presented to the ED for evaluation of shortness of breath. She described increased leg swelling and her PCP had recently switched her amlodipine to losartan due to this. She was hypoxic and maintained on low-flow supplemental O2 nasal cannula. CTA chest showed no evidence of PE, left basilar atelectasis, possible left renal mass. No signs or symptoms of pneumonia. ABG demonstrated CO2 retention with normal pH. It is suspected patient's symptoms and findings are likely related to obesity hypoventilation syndrome exacerbated by the developing edema. She was diuresed with IV Lasix and which improved her edema and respiratory status. She was seen by pulmonology, Dr Ramsey. She is encouraged to follow up for outpatient PFTs and sleep study arrangement. Home oxygen evaluation on day of discharge shows she does not qualify for home oxygen. She is eager for discharge and hemodynamically stable for such on 04/22/20 with instructions to follow up with PCP and pulmonology. Healthier lifestyle modifications are recommended and she is encouraged to continue incentive spirometry at home also. Regarding the left renal mass; this was re-imaged with renal ultrasound that demonstrated indeterminate bilateral renal lesions - MRI abdomen with and without contrast recommended. Discussed with patient and she adamantly declines MRI. ABG shows CO2 retention. This may be related to possible obesity hypoventilation syndrome exacerbated by the developing edema. She is neither lethargic nor confused despite the elevated CO2. Suspect her baseline may be elevated. Improved on repeat ABG after some diuresis. Does not need home O2 according to home O2 eval done on day of discharge. Incentive spirometry and encourage deep breaths. (2) Shortness of breath: Code(s): R06.02 - Shortness of breath Status: Acute Assessment and Plan: See above. Echocardiogram reviewed. Apnea link screening is negative. Follow up with pulmonology for outpatient PFTs. (3) Edema: Code(s): R60.9 - Edema, unspecified Status: Acute Assessment and Plan: Improving with IV diuresis. Venous doppler shows no DVT markie legs. Norvasc may have contributed, medication changes recently. Elevate legs, patient admits she does not do this at home. (4) Abnormal finding on imaging: Code(s): R93.89 - Abnormal findings on diagnostic imaging of other specified body structures Status: Acute Assessment and Plan: MARKIE renal masses noted on CT and renal ultrasound. Discussed recommendation for further evaluation with MRI. Patient adamantly declines MRI due to claustrophobia. (5) Hypertension: Code(s): I10 - Essential (primary) hypertension Status: Chronic Assessment and Plan: Stable on lower end, asymptomatic. Continue home losartan, continue diuresis. (6) Dyslipidemia: Code(s): E78.5 - Hyperlipidemia, unspecified Status: Acute Assessment and Plan: Continue home statin therapy. (7) Morbid obesity: Code(s): E66.01 - Morbid (severe) obesity due to excess calories Status: Acute Assessment and Plan: Lifestyle modifications encouraged. (8) Chronic back pain: Code(s): M54.9 - Dorsalgia, unspecifi
[2020-04-22 17:25] LABS: Glucose Point of Care 145 (65-105)
== END 2020-04-22 19:12 | disposition home or self-care (01) | DRG 206 ==
LOC: ANHED 19:14 → ANH3MED 19:44
PROVIDERS: Physician Assistant; Admitting Provider Internal Medicine; Emergency Provider Emergency Medicine; PCP Family Medicine; Visit Provider Physician Assistant
DX: E66.2 Morbid (severe) obesity with alveolar hypoventilation (principal); Z68.42 Body mass index [BMI] 45.0-49.9, adult; E87.2 Acidosis; R09.02 Hypoxemia; G47.33 Obstructive sleep apnea (adult) (pediatric); D64.9 Anemia, unspecified; E78.5 Hyperlipidemia, unspecified; I10 Essential (primary) hypertension; M54.9 Dorsalgia, unspecified; G89.29 Other chronic pain; N28.89 Other specified disorders of kidney and ureter; R73.03 Prediabetes; Z87.891 Personal history of nicotine dependence
CPT/HCPCS: 36415; 36600; 71045; 71275; 76775; 80048; 80053; 80076; 82375; 82607; 82728; 82746; 82805; 82948; 83036; 83050; 83540; 83550; 83735; 83880; 84443; 84484; 85025; 85027; 85380; 85610; 85730; 93005; 93306; 93970; 94618; 94762; 96374; 97161; 97165; 99285; A9270; G0378; J1940; J3475; Q9967

== ENCOUNTER 2020-05-04 06:51 | Outpatient (CLI) | payer MEDICARE, SELFPAY ==
--- NOTE | ~2020-05-04 | CT_ITS ---
EXAMINATION: CT abdomen wo/w con DATE: 05/04/2020 07:29 INDICATION: Follow-up renal masses. TECHNIQUE: Computed tomography (CT) of the abdomen was performed without and with 100 cc Omnipaque 35 0 intravenous contrast. The dose-length product was 2050.69 mGy-cm. Automated exposure control and it erative reconstruction technique were employed. COMPARISON: CT dated 09/15/2019 and ultrasound dated 04/20/2020. FINDINGS: There is a stone in the cystic duct. No significant biliary dilatation. There are multiple bilateral renal cysts, largest in the lower pole of the left kidney measures 6.9 cm. There is a stone in the lower pole of the right kidney located in a dilated calyx. The liver, spleen, pancreas, adrenal glands are unremarkable. Nonobstructive bowel gas pattern. Vickie l appendix partially visualized. Small fat-containing umbilical hernia. Severe lumbar spondylosis wit h levoscoliosis. IMPRESSION: 1. Cystic duct stone without significant biliary dilatation. 2: Bilateral renal cysts. 3: Right renal stone located in a lower pole calyx measuring 7 mm. Reviewed, dictated and finalized at location A.
== END 2020-05-04 06:52 | disposition home or self-care (01) ==
PROVIDERS: PCP Family Medicine; Visit Provider Family Medicine
DX: N28.9 Disorder of kidney and ureter, unspecified (principal); N20.9 Urinary calculus, unspecified; N28.1 Cyst of kidney, acquired; N20.0 Calculus of kidney
CPT/HCPCS: 74170; Q9967

== ENCOUNTER 2020-06-22 07:46 | Outpatient (CLI) | payer MEDICARE, SELFPAY ==
[2020-06-22 09:40] LABS: Alveolar/Arterial O2 Gradient 37.9 mmHg; Base Excess ABG 5.3 mEq/l (+/-2.0); Carboxyhemoglobin 0.7 % THb (0-2.0); Fractional Inspired Oxygen 21 %; HCO3 ABG 30.9 mEq/l (22.0-26.0); Methemoglobin ABG 0.2 %THb (0-1.5); Oxygen Content ABG 16.4 %vol (16.0-22.0); Oxygen Saturation ABG 87.7 % (95.0-100.0); Oxyhemoglobin 87.1 % THb (90.0-100.0); PO2 ABG 53.2 mmHg (80.0-100.0); PO2 FiO2 Ratio Arterial Blood 2.53 %; Total Hemoglobin 13.4 g/dL (12.0-18.0); pH ABG 7.417 (7.350-7.450)
[2020-06-22 09:42] LABS: Device ROOM AIR; Modified Allen's Test Pass; Site Drawn RIGHT RADIAL
[2020-06-22 10:00] VITALS: PULSE 77; O2SAT 89
[2020-06-22 10:03] VITALS: PULSE 110; O2SAT 85
[2020-06-22 10:05] VITALS: O2SAT 86
[2020-06-22 10:07] VITALS: PULSE 110; O2SAT 93
[2020-06-22 10:15] VITALS: PULSE 90; O2SAT 90
--- NOTE | 2020-06-22 10:16 | PCRCNOTE ---
requested home o2 eval order entered, pt was willing to have eval done, sats were low, she wasnt feeling well and willing to try home O2. Also pt states she wasn't interested in using LABA due to having to rinse her mouth out, this scared her so she only used it a few times, although while speaking she said she had a few days where she felt really well, less SOB more energy, this had coincided with the trial of bronchodilator med. Once I explained the need for rinsing out mouth and what the medicine is, also a good way to use is in a.m. with oral hygiene routine, teeth brushing/mouthwash, she seems responsive and eager to try again.
--- NOTE | 2020-06-22 10:32 | HOMEO2EVAL ---
Evaluation was performed at [facility] Home Oxygen Evaluation RC: Home Oxygen (O2) Evaluation Start: 06/22/20 10:24 Freq: Status: Active Protocol: RPE Activity Type Activity Date Activity User E-Sign Co-Sign Detail Recorded Client Recorded Date Recorded By Document 06/22/20 10:00 [email or web address] [email or web address] 06/22/20 10:28 YIMI Document 06/22/20 10:03 YIMI [email or web address] 06/22/20 10:28 YIMI Document 06/22/20 10:05 YIMI [email or web address] 06/22/20 10:28 YIMI Document 06/22/20 10:07 YIMI [id number] 06/22/20 10:28 YIMI Document 06/22/20 10:15 YIMI [email or web address] 06/22/20 10:28 YIMI 06/22/20 06/22/20 06/22/20 10:00 10:03 10:05 Home O2 Evaluation Test Phase Resting Exercise Exercise Oxygen Delivery Room Air Room Air Nasal Cannula Oxygen Flow Rate (L/min) 1 Pulse Oximetry (90-100 %) 89 L 85 L 86 L Pulse Rate (60-100 beats/min) 77 110 H Ambulation Distance (feet) Home Oxygen Evaluation Comments Treatment Charges O2 Evaluation - Outpatient 06/22/20 06/22/20 10:07 10:15 Home O2 Evaluation Test Phase Exercise Resting Oxygen Delivery Nasal Cannula Room Air Oxygen Flow Rate (L/min) 2 Pulse Oximetry (90-100 %) 93 90 Pulse Rate (60-100 beats/min) 110 H 90 Ambulation Distance (feet) 400 Home Oxygen Evaluation Comments Pt requires 2 liters O2 with activity Treatment Charges
--- NOTE | 2020-06-22 12:29 | WPDPFTINT ---
PFT Procedure Performed PFT Procedure Performed Spirometry with Pre/Post Bronchodilator Plethysmography (Lung Vol) Diffusing Cap (DLCO) Flow Vol Loop PFT Interpretation This is a pulmonary function test with pre and post-bronchodilator spirometry, plethysmography and diffusing capacity. The test was performed and results interpreted in accordance with the 2019 and 2005 ATS/ERS Task Force guidelines respectively using the Global Lung Function Initiative-2012 reference equations. Patient demonstrated good effort and cooperation. Reproducibility criteria were met. The quality of the pre bronchodilator spirometry maneuver was Grade A and post bronchodilator spirometry maneuver was Grade A. Findings: Spirometry: there is decreased maximal expiratory airflow at all lung volumes with a mildly concave expiratory flow tracing. The pre bronchodilator FVC see is 1.40 L, 62% predicted. The pre bronchodilator FEV1 is 0.83 L, 48% predicted. The FEV1: FVC ratio is 59%. The post bronchodilator FVC is 1.40 L, representing no change. The post bronchodilator FEV1 is 10.89 L, representing a 6% increase. Plethysmography: The total lung capacity is 3.73 L, 84% predicted. The functional residual capacity is 2.67 L, 106% predicted. The residual volume is 2.32 L, 109% predicted. Diffusion capacity: The absolute diffusion capacity is 11.3, 62% predicted. The diffusing capacity corrected for alveolar volume is 4.78, 110% predicted. Patient had a room air resting arterial blood gas demonstrated a pH of 7.42, PaCO2 of 49, PaO2 53. Impression: There is a severe obstructive abnormality without significant improvement after inhaling a single dose of albuterol. The lung volumes are normal. The absolute diffusing capacity is mildly decreased and normalizes when corrected for alveolar volume. The blood gas demonstrates a mixed acid-base disturbance with a metabolic alkalosis and a respiratory acidosis. There is hypoxemia at rest. There are no prior studies for comparison
== END 2020-06-22 07:47 | disposition home or self-care (01) ==
PROVIDERS: PCP Family Medicine; Visit Provider Internal Medicine Pulmonary Disease
DX: J96.11 Chronic respiratory failure with hypoxia (principal); J96.12 Chronic respiratory failure with hypercapnia; R06.00 Dyspnea, unspecified; R06.02 Shortness of breath; R94.2 Abnormal results of pulmonary function studies
CPT/HCPCS: 36600; 82375; 82805; 83050; 94060; 94618; 94726; 94729

== ENCOUNTER → 2020-11-13 00:22 | Outpatient (CLI) | payer MEDICARE, SELFPAY ==
[2020-11-13 19:34] LABS: SARS-CoV-2 RNA PCR Positive
== END ==
PROVIDERS: PCP Family Medicine; Visit Provider Family Medicine
DX: U07.1 COVID-19 (principal)
CPT/HCPCS: C9803; U0003; U0005

== ENCOUNTER 2020-11-16 08:05 | Outpatient (RCR) | payer MEDICARE, SELFPAY ==
[2020-11-16] MEDS: ACETAMINOPHEN 325 MG TABLET 650 MG PO (11:37)
[2020-11-16] MEDS: FAMOTIDINE 20 MG TABLET PO (11:38)
[2020-11-16] MEDS: diphenhydrAMINE HCl CAP 25 MG CAPSULE PO (11:38)
[2020-11-16 11:59] VITALS: BP 130/74; PULSE 71; RESP 18; TEMP 36.3; O2SAT 93
[2020-11-16 13:26] VITALS: BP 132/58; PULSE 70; RESP 18; O2SAT 93
--- NOTE | 2020-11-17 10:39 | PC.NURSE ---
Called patient regarding Covid antibody infusion. patient is feeling good with no side effects of complications.
== END 2020-11-16 16:29 | disposition home or self-care (01) ==
LOC: AMCINF 08:05
PROVIDERS: PCP Family Medicine; Referring Provider Family Medicine; Visit Provider Internal Medicine Hematology & Oncology
DX: Z23 Encounter for immunization (principal); U07.1 COVID-19; J44.9 Chronic obstructive pulmonary disease, unspecified
CPT/HCPCS: A9270; J7050; M0243; Q0244

== ENCOUNTER 2022-01-24 01:19 | Day surgery (SDC) | payer MEDICARE, SELFPAY ==
[2022-01-12 13:36] VITALS: BMI 39.2
--- NOTE | 2022-01-24 08:59 | PM.HPGS ---
History of Present Illness History of Present Illness Consent: Risks, benefits, and alternatives have been discussed and questions answered. Patient agrees to proceed with procedure. Chief complaint: hx colon polyps Narrative: Macy Ram is a 81 year old female Presents for screening colonoscopy. Patient has a history of colon polyps by colonoscopy 2011. Most recent exam 2017 was unremarkable. Patient reports she has occasional loose stools. She denies any bleeding. Her weight has remained stable. Family history noncontributory. Review of Systems Review of Systems: Review of systems noncontributory. [facility] Past Medical History Medical History Chronic back pain Dyslipidemia Former smoker History of colon polyps Hypertension Morbid obesity Surgical History Surgical History History of colonoscopy Revealing diverticulosis, internal hemorrhoids, and benign colon polyp. History of hemorrhoidectomy History of tubal ligation Family History Family History Mother Renal failure Heart disease Father Cerebrovascular accident Social History Social History Social History: The patient is lives with her in [place]. They have 2 grown children. She smoked 1 pack of cigarettes per day off and on for a total of 35 years and quit in 2006. No alcohol or illicit substance abuse. She designates her children, Ade and Taiwo, as her surrogate decision makers and she wishes to be a full code. Smoking packs per day: 1 Smoking cigarettes per day: 20.0 Years smoked: 35 Smoking pack-years: 35.00 Smoking status: Former smoker Tobacco type: cigarettes Smoking end date: 02/13/04 Alcohol intake: current Drinks per week: 1 Alcohol use details: wine occasionally Substance use: never Substance use type: does not use Living arrangements: alone Gender identity (if verbalized by the patient): Female Spiritual care concerns: No Meds Home Medications and Allergies Home Medications Medication Instructions Recorded Confirmed Type Aleve 250 mg PO DAILY 04/19/20 01/12/22 History atorvastatin 20 mg tablet 20 mg PO DAILY 04/19/20 01/12/22 History losartan 50 mg tablet 50 mg PO DAILY 04/19/20 01/12/22 History metformin 850 mg tablet 850 mg PO BID 04/19/20 01/12/22 History albuterol sulfate 90 mcg/actuation 2 inh inhalation Q4H PRN shortness 10/14/20 01/12/22 Rx aerosol inhaler of breath or wheezing #8.5 grams tiotropium 2.5 mcg-olodaterol 2.5 2 puff inhalation DAILY #4 grams 10/14/20 01/12/22 Rx mcg/actuation mist for inhalation sodium,potassium,mag sulfates 17.5 See Rx Instructions PO .COMPLEX 12/13/21 Rx gram-3.13 gram-1.6 gram oral soln #354 mL (Suprep Bowel Prep Kit) aspirin 81 mg tablet 81 mg PO DAILY 01/12/22 01/12/22 History coQ10 (ubiquinol) 200 mg capsule 200 mg PO DAILY 01/12/22 01/12/22 History furosemide 40 mg tablet 20 mg PO DAILY 01/12/22 01/12/22 History Allergies Allergy/AdvReac Type Severity Reaction Status Date / Time lisinopril AdvReac Angioedema Verified 01/12/22 13:37 Exam Narrative: Physical exam reveals patient be alert. Vital signs stable. HEENT exam is unremarkable. Patient is anicteric. Lungs are clear to auscultation and percussion. Heart is without murmur or extra sounds. Abdomen Is obese. bowel sounds are present soft nontender with no organomegaly. Digital external rectal exam is normal. Assessment and Plan Assessment and plan (1) Encounter for screening colonoscopy: Code(s): Z12.11 - Encounter for screening for malignant neoplasm of colon Status: Acute Assessment and Plan: Patient presents for screening colonoscopy. She has a distant history of colon polyps 10 years ago. Rick
[2022-01-24 09:08] VITALS: BP 153/73; PULSE 100; RESP 20; TEMP 36.2; O2SAT 94
[2022-01-24 09:26] LABS: Glucose Point of Care 113 mg/dl (65-105)
[2022-01-24] MEDS: LACTATED RINGERS 1,000 ML 150 ML IV CONT (09:27)
--- NOTE | 2022-01-24 09:59 | WPDANESEPPF ---
Anes - Initial Pre Proc Eval Procedure: Operation Date: 01/24/22 10:15 Proposed Procedures p Screening Colonoscopy - Solitario Macdonald MD Date/Time: 01/24/22 09:59 Surgeon: Solitario Macdonald MD Pre Op Diagnosis: hx colon polyps Patient Data Age: 81 Gender: F Height: 1.52 m Weight: 98.6 kg Last Vital Signs Temp 97.2 F L 01/24/22 09:08 Pulse 100 01/24/22 09:08 Resp 20 01/24/22 09:08 BP 153/73 H 01/24/22 09:08 Pulse Ox 94 01/24/22 09:08 O2 Del Method Room Air 01/24/22 09:08 Allergies Allergy/AdvReac Type Severity Reaction Status Date / Time lisinopril AdvReac Angioedema Verified 01/24/22 09:07 Home Medications Medication Instructions Recorded Confirmed Type Aleve 250 mg PO DAILY 04/19/20 01/12/22 History atorvastatin 20 mg tablet 20 mg PO DAILY 04/19/20 01/12/22 History losartan 50 mg tablet 50 mg PO DAILY 04/19/20 01/12/22 History metformin 850 mg tablet 850 mg PO BID 04/19/20 01/12/22 History albuterol sulfate 90 mcg/actuation 2 inh inhalation Q4H PRN shortness 10/14/20 01/12/22 Rx aerosol inhaler of breath or wheezing #8.5 grams tiotropium 2.5 mcg-olodaterol 2.5 2 puff inhalation DAILY #4 grams 10/14/20 01/12/22 Rx mcg/actuation mist for inhalation sodium,potassium,mag sulfates 17.5 See Rx Instructions PO .COMPLEX 12/13/21 Rx gram-3.13 gram-1.6 gram oral soln #354 mL (Suprep Bowel Prep Kit) aspirin 81 mg tablet 81 mg PO DAILY 01/12/22 01/12/22 History coQ10 (ubiquinol) 200 mg capsule 200 mg PO DAILY 01/12/22 01/12/22 History furosemide 40 mg tablet 20 mg PO DAILY 01/12/22 01/12/22 History Laboratory Tests 01/24/22 09:17 POC Capillary Glucose 113 mg/dl H mg/dl (65-105) Patient hx anesthesia problems: none Family hx anesthesia problems: none Results Review: All pre-operative results and documents have been reviewed as part of the pre-operative evaluation. [facility] Past Medical History Medical History Chronic back pain Dyslipidemia Former smoker History of colon polyps Hypertension Morbid obesity Surgical History Surgical History History of colonoscopy Revealing diverticulosis, internal hemorrhoids, and benign colon polyp. History of hemorrhoidectomy History of tubal ligation Family History Family History Mother Renal failure Heart disease Father Cerebrovascular accident Social History Social History Social History: The patient is lives with her in [place]. They have 2 grown children. She smoked 1 pack of cigarettes per day off and on for a total of 35 years and quit in 2006. No alcohol or illicit substance abuse. She designates her children, Ade and Taiwo, as her surrogate decision makers and she wishes to be a full code. Smoking packs per day: 1 Smoking cigarettes per day: 20.0 Years smoked: 35 Smoking pack-years: 35.00 Smoking status: Former smoker Tobacco type: cigarettes Smoking end date: 02/13/04 Alcohol intake: current Drinks per week: 1 Alcohol use details: wine occasionally Substance use: never Substance use type: does not use Living arrangements: alone Gender identity (if verbalized by the patient): Female Spiritual care concerns: No Anes - Eval Final PreProcedure Day of Procedure 01/24/22 09:59 Patient weight: morbidly obese Heart: regular rate and rhythm Lungs: clear to auscultation Airway: Mallampati scale class II Neurological: alert and oriented Last oral intake: >/= 8 hours ASA classification: III Emergent: no Anesthetic plan: proceed Anesthesia type and monitoring: general GIVS and standard monitoring Results Review: All pre-operative results and documents have been reviewed as part of the pre-operative evaluation. Informed Conse
[2022-01-24 10:18] VITALS: BP 126/65; PULSE 72; RESP 18; O2SAT 96
[2022-01-24 10:28] VITALS: BP 124/65; PULSE 67; RESP 18; O2SAT 92
[2022-01-24 10:38] VITALS: BP 142/71; PULSE 68; RESP 18; O2SAT 94
== END 2022-01-24 10:49 | disposition home or self-care (01) ==
PROVIDERS: PCP Family Medicine; Visit Provider Internal Medicine Gastroenterology
PROC: 0DJD8ZZ Inspection of Lower Intestinal Tract, Via Natural or Artificial Opening Endoscopic (ICD-10-PCS; CPT 45378; principal; 2022-01-24 10:15)
DX: Z12.11 Encounter for screening for malignant neoplasm of colon (principal); K64.8 Other hemorrhoids; K57.30 Diverticulosis of large intestine without perforation or abscess without bleeding; Z86.010 Personal history of colon polyps; E78.5 Hyperlipidemia, unspecified; I10 Essential (primary) hypertension; E66.01 Morbid (severe) obesity due to excess calories; Z68.41 Body mass index [BMI] 40.0-44.9, adult; Z87.891 Personal history of nicotine dependence; Z79.51 Long term (current) use of inhaled steroids; Z79.82 Long term (current) use of aspirin
CPT/HCPCS: G0105; 82948; J2704; J7120

== ENCOUNTER 2022-08-22 13:25 | Outpatient (CLI) | payer MEDICARE, SELFPAY ==
--- NOTE | ~2022-08-22 | XR_ITS ---
XR chest 2V DATE: 08/22/2022 13:56 INDICATION: Worsening dyspnea TECHNIQUE: PA and lateral views COMPARISON: 04/29/2020 CT pulmonary scan FINDINGS: Cardiomegaly. Aortic arch calcification. No pulmonary infiltrate or consolidation. No pleural effusion is evident. No pneumothorax. Degenerative spurring of the thoracic and lumbar spine. IMPRESSION: Cardiomegaly, aortic atherosclerosis Reviewed, dictated and finalized at location A.
[2022-08-22 14:05] LABS: Basophils Percent Auto 0.4 % (0.2-1.2); Eosinophils Absolute Auto 0.2 K/mm3 (0-0.3); Hematocrit 41.8 % (37.0-47.0); Hemoglobin 13.1 g/dL (12.0-15.0); Immature Granulocyte Absolute 0.04 K/mm3 (0.00-0.031); Immature Granulocyte Percent A 0.5 % (0-0.5); Lymphocytes Absolute Auto 1.66 K/mm3 (0.9-3.2); Lymphocytes Percent Auto 20.5 % (18.3-44.2); Mean Corpuscular HGB Conc 31.3 g/dl (32-36); Mean Corpuscular Hemoglobin 31.7 pg (26-34); Mean Corpuscular Volume 101.2 fl (80-100); Mean Platelet Volume 9.9 fl (7.4-10.4); Monocytes Absolute Auto 0.5 K/mm3 (0.1-0.6); Monocytes Percent Auto 5.9 % (2.6-8.5); Neutrophils Absolute Auto 5.7 K/mm3 (1.3-6.7); Neutrophils Percent Auto 70.7 % (45.5-73.1); Platelet Count Result 262 k/mm3 (150-375); Red Blood Count 4.13 M/mm3 (4.2-5.4); Red Cell Distribution Width 14.2 % (11.5-14.5); White Blood Count 8.1 K/mm3 (4.5-10.0)
[2022-08-22 14:37] LABS: NT Pro B Type Natriuretic Pept 978 pg/mL (19.9-100)
== END 2022-08-22 13:26 | disposition home or self-care (01) ==
PROVIDERS: PCP Family Medicine; Visit Provider Nurse Practitioner Family
DX: R06.09 Other forms of dyspnea (principal); R60.0 Localized edema; I51.7 Cardiomegaly; I70.0 Atherosclerosis of aorta
CPT/HCPCS: 36415; 71046; 83880; 85025

== ENCOUNTER 2022-09-11 12:29 | Outpatient (CLI) | payer MEDICARE, SELFPAY ==
--- NOTE | 2022-09-11 12:41 | ECHO_ITS ---
Patient Info Name: Macy Ram Age: 81 years : 1940 Gender: Female Ht: 60 in Wt: 250 lbs BSA: 2.27 m2 HR: 95 bpm BP: 167 / 80 mmHg Technical Quality: Fair Exam Date: 09/11/2022 12:50 PM Exam Location: [facility] Patient Status: Outpatient Admit Date: 09/11/2022 Staff Ordering Physician: Victor M Rinaldi APRN Spd Manager: Essence Ernst RDCS Attending Provider: Victor M Rinaldi APRN Referring Physician: Gentry GALEANO; Exam Type: CA echo doppler color flow Study Info Indications I50.32 - Chronic diastolic (congestive) heart failure Complete two-dimensional, color flow and Doppler transthoracic echocardiogram is performed. Summary 1. Complete two-dimensional, color flow and Doppler transthoracic echocardiogram is performed. 2. Left ventricular chamber dimension is normal. 3. Left ventricular systolic function is normal, estimated at 55-60%. 4. There is mild concentric increased left ventricular wall thickness. 5. The left ventricular diastolic function is grade I diastolic dysfunction. 6. E/e' 12 is mildly elevated. 7. No pulmonary hypertension, estimated pulmonary arterial systolic pressure is 30 mmHg. Left Ventricle E/e' 12 is mildly elevated. Left ventricular chamber dimension is normal. Left ventricular systolic function is normal, estimated at 55-60%. There is mild concentric increased left ventricular wall thickness. The left ventricular diastolic function is grade I diastolic dysfunction. Right Ventricle Right ventricular chamber dimension is normal. Right ventricular systolic function is normal. Left Atria Left atrial chamber dimension is normal. Right Atria Right atrial chamber dimension is normal. Aortic Valve The aortic valve is trileaflet. There is no aortic valve stenosis. There is no aortic valve regurgitation. Pulmonic Valve There is no pulmonic regurgitation. Mitral Valve There is no mitral valve stenosis. There is no mitral valve regurgitation. Tricuspid Valve There is no tricuspid valve regurgitation. No pulmonary hypertension, estimated pulmonary arterial systolic pressure is 30 mmHg. Pericardium/Pleural There is no pericardial effusion. Inferior Vena Cava Normal inferior vena cava with >50% collapse upon inspiration consistent with normal right atrial pressure, 5 mmHg. Aorta The aortic root size at the sinus of Valsalva is normal. Left Ventricular Outflow Tract Name Value Normal LVOT 2D LVOT Diameter 2.1 cm LVOT Doppler LVOT Peak Gradient 5 mmHg LVOT Mean Gradient 3 mmHg LVOT VTI 26 cm LVOT VTI/AV VTI Ratio 0.8 LVOT Stroke Volume 88 ml LVOT CO 7.1 l/min LVOT CI 3.1 l/min/m2 Pulmonic Valve Name Value Normal RVOT Doppler RVOT Peak Gradient 3 mmHg
== END 2022-09-11 12:30 | disposition home or self-care (01) ==
LOC: ANHCARD 12:31
PROVIDERS: PCP Family Medicine; Visit Provider Nurse Practitioner Family
DX: I50.32 Chronic diastolic (congestive) heart failure (principal); R06.09 Other forms of dyspnea; R60.0 Localized edema
CPT/HCPCS: 93306

== ENCOUNTER 2022-09-26 10:30 | Outpatient (CLI) | payer MEDICARE, SELFPAY ==
--- NOTE | 2022-09-28 13:17 | WPDSLEEPSTUD ---
Sleep Study Date of Study: 09/26/22 Ordering Provider: Victor M Rinaldi APRN Interpreting Physician: Carmen Thompson MD Sleep Study Type: Split Polysomnogram Height: 1.52 m Weight: 102.058 kg Body Mass Index: 43.9 Neck Circumference (inches): 17.5 [place]: 8 Reason for Sleep Study Waking at night feeling short of breath Sleep History Tabatha Ram is a 81-year-old woman with COPD and exercise hypoxemia on oxygen. She uses oxygen 2 L a minute with activity. She recently started using oxygen with sleep. She had an overnight oximetry that showed 304 minutes of saturation below 88%however at the time, she refused oxygen at night or to have a polysomnogram. The patient indicates that she has had increased with breathing problems after COVID a year ago. She occasionally wakes up gasping for breath at night. She occasionally has breathing problems at night reported to her by others. She rarely sweats excessively at night or notices her heart pounding or beating irregularly night. She occasionally falls asleep during the day, occasionally falls asleep involuntarily but denies falling asleep while driving. She does not have loss of muscle tone with strong emotion. She does not feel paralyzed on waking or falling asleep. She occasionally has vivid dreamlike scenes on waking or falling asleep. She does not feel afraid to go to sleep. She does not have nightmares. She occasionally remembers her dreams. She occasionally feels sad or depressed. She rarely has anxiety. She rarely has muscular tension. She does not notice parts of her body jerking. She rarely kicks at night. She does not have crawling or aching feelings in her legs. She rarely has any kind of leg pain at night. She does not have morning jaw pain. Her normal bedtime is between 9:30 p.m. and 11:00 p.m.. She falls asleep within 5 minutes. She wakes up twice at night to go to the bathroom. Sometimes she puts oxygen on during the night. Now she sleeping with it every night. Her normal wake time is between 7:30 a.m. and 8:00 a.m.. She keeps the same schedule on weekends. She estimates getting between 7 and 9 hours of sleep at night. She takes naps in the afternoon or evening. A short nap lasting 10 or 15 minutes may be refreshing. She feels better in the afternoon or evening compared to the morning. Habits: No tobacco. No caffeine, alcohol or recreational substances. [facility] Past Medical History Medical History (Updated 09/28/22 @ 13:27 by Carmen Thompson MD) Chronic diastolic (congestive) heart failure COPD (chronic obstructive pulmonary disease) Dyslipidemia Former smoker History of colon polyps Hypertension Morbid obesity Prediabetes Surgical History Surgical History History of colonoscopy Revealing diverticulosis, internal hemorrhoids, and benign colon polyp. History of hemorrhoidectomy History of tubal ligation Family History Family History Mother Renal failure Heart disease Father Cerebrovascular accident Social History Social History Social History: The patient is lives with her in [place]. They have 2 grown children. She smoked 1 pack of cigarettes per day off and on for a total of 35 years and quit in 2006. No alcohol or illicit substance abuse. She designates her children, Ade and Taiwo, as her surrogate decision makers and she wishes to be a full code. Smoking packs per day: 1 Smoking cigarettes per day: 20.0 Years smoked: 35 Smoking pack-years: 35.00 Smoking status: Former smoker Tobacco type: cigarettes Smoking end date: 02/13/04 Alcohol intake: current Drinks per week: 1 Alcohol use details: wine occasionally Substance use: never Substance use type: does not use Lack of Transportation: No Lack of Food: Never True
[2022-09-28 14:03] VITALS: BMI 43.9
== END 2022-09-27 06:51 | disposition home or self-care (01) ==
LOC: ANHCSM 10:31
PROVIDERS: PCP Family Medicine; Visit Provider Nurse Practitioner Family
DX: G47.33 Obstructive sleep apnea (adult) (pediatric) (principal); G47.30 Sleep apnea, unspecified; J96.11 Chronic respiratory failure with hypoxia; J96.12 Chronic respiratory failure with hypercapnia
CPT/HCPCS: 95811